=== PATIENT | male | born 1950 | race Caucasian/White ===

== ENCOUNTER 2016-05-29 15:54 | Emergency (ER) | payer SELFPAY ==
[2016-05-29 16:20] VITALS: BP 143/77
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
== END 2016-05-29 17:34 | disposition home or self-care (01) ==
LOC: UCEAST 15:54
DX: S16.1XXA Strain of muscle, fascia and tendon at neck level, initial encounter (principal); V89.2XXA Person injured in unspecified motor-vehicle accident, traffic, initial encounter; Y93.9 Activity, unspecified; Y99.9 Unspecified external cause status; M54.12 Radiculopathy, cervical region
CPT/HCPCS: 99213; G0463

== ENCOUNTER 2018-02-05 15:50 | Emergency (ER) | payer OTHER ==
[2018-02-05] MEDS ORDERED: Ibuprofen TAB* 800 MG PO ONE (16:24)
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
[2018-02-05 18:00] VITALS: BP 120/86
== END 2018-02-05 17:59 | disposition home or self-care (01) ==
LOC: ED 15:50
DX: S82.001A Unspecified fracture of right patella, initial encounter for closed fracture (principal); M25.561 Pain in right knee; W22.8XXA Striking against or struck by other objects, initial encounter; Y92.9 Unspecified place or not applicable
CPT/HCPCS: 99282; A9270-GY